=== PATIENT | male | born 1950 | race Caucasian/White ===

== ENCOUNTER 2018-03-13 04:36 | Emergency (ER) | payer OTHER ==
[2018-03-13] MEDS ORDERED: Ondansetron 4 MG/2 ML SDV IVPUSH ONE (05:02)
--- NOTE | 2018-03-13 05:05 | EDM.PDOC ---
ED HPI GENERAL MEDICAL PROBLEM - General Chief Complaint: Gastrointestinal Problem Stated Complaint: VOMITING Time Seen by Provider: 03/13/18 05:02 - History of Present Illness INITIAL COMMENTS - FREE TEXT/NARRATIVE: HISTORY AND PHYSICAL: History of present illness: Patient is a 68-year-old white male history of non-insulin dependent diabetes and hypertension who presents with concern of nausea and vomiting over last 24- 48 hours he's had some vague abdominal pain it's more left-sided is no fever chills chest pain shortness breath or other concern. Blood sugar on arrival was 338 Review of systems: As per history of present illness and below otherwise all systems reviewed and negative. Past medical history: As per history of present illness and as reviewed below otherwise noncontributory. Surgical history: As per history of present illness and as reviewed below otherwise noncontributory. Social history: No reported history of drug or alcohol abuse. Family history: As per history of present illness and as reviewed below otherwise noncontributory. Physical exam: HEENT: Atraumatic, normocephalic, pupils reactive, negative for conjunctival pallor or scleral icterus, mucous membranes dry, throat clear, neck supple, nontender, trachea midline. Lungs: Clear to auscultation, breath sounds equal bilaterally, chest nontender. Heart: S1S2, regular, negative for clicks, rubs, or JVD. Abdomen: Soft, nondistended, no localized tenderness Negative for masses or hepatosplenomegaly. Negative for costovertebral tenderness. Pelvis: Stable nontender. Genitourinary: Deferred. Rectal: Deferred. Extremities: Atraumatic, negative for cords or calf pain. Neurovascular unremarkable. Neuro: Awake, alert, oriented. Cranial nerves II through XII unremarkable. Cerebellum unremarkable. Motor and sensory unremarkable throughout. Exam nonfocal. Diagnostics: CBC CMP troponin lipase UA urine drug screen chest x-ray EKG CT abdomen and pelvis Therapeutics: Normal saline 1 L bolus Zofran 4 mg IV Impression: #1 vomiting with dehydration #2 abdominal pain #3 [id number] diabetes #4 history of hypertension Definitive disposition and diagnosis as appropriate pending reevaluation and review of above. abdomen Pain Score (Numeric/FACES): 7 - Related Data Allergies Allergy/AdvReac Type Severity Reaction Status Date / Time No Known Allergies Allergy Verified 03/13/18 04:52 Home Meds: Home Meds Aspirin 81 mg PO DAILY 03/13/18 [History] Lisinopril 40 mg PO DAILY 03/13/18 [History] Multivit-Min/FA/Lycopene/Lut [Centrum Silver Tablet] 1 each PO DAILY 03/13/18 [ History] glipiZIDE [Glucotrol] 5 mg PO DAILY 03/13/18 [History] metFORMIN [Glucophage] 850 mg PO BIDMEALS 03/13/18 [History] Past Medical History Cardiovascular History: Reports: Hypertension Endocrine/Metabolic History: Reports: Diabetes, Type II - Infectious Disease History Infectious Disease History: Reports: Chicken Pox, Measles Social & Family History - Tobacco Use Smoking Status *Q: Never Smoker - Caffeine Use Caffeine Use: Reports: None - Recreational Drug Use Recreational Drug Use: No ED ROS GENERAL - Review of Systems Review Of Systems: ROS reveals no pertinent complaints other than HPI. ED EXAM, GENERAL - Physical Exam Exam: See Below (See dictation) Course - Vital Signs Last Recorded V/S: Last Vital Signs Temp 36.1 C 03/13/18 04:49 Pulse 88 03/13/18 05:46 Resp 18 03/13/18 05:46 BP 168/102 H 03/13/18 05:46 Pulse Ox 100 03/13/18 05:46 - Orders/Labs/Meds Orders: Active Orders 24 hr Category Date Time Status EKG 12 Lead [EKG Documentation Completion] [RC] STAT Care 03/13/18 05:01 Active Abdomen Pelvis wo Cont [CT] Stat Exams 03/13/18 05:06 Taken Chest 1V Frontal [CR] Stat Exams 03/13/18 05:01 Taken DRUG SCREEN, URINE [URCHEM] Stat Lab 03/13/18 05:01 Ordered UA W/MICROSCOPIC [URIN] Stat Lab 03/13/18 05:01 Ordered Labs: Laboratory Tests 03/13/18 03/13/18 03/13/18 Range/Units 04:52 04:55 04:55 WBC 7.56 (4.0-11.0) K/uL RBC 5.48 (4.50-5.90) M/uL Hgb 16.4 (13.0-17.0) g/dL Hct 44.1 (38.0-50.0) % MCV 80.5 (80.0-98.0) fL MCH 29.9 (27.0-32.0) pg MCHC 37.2 H (31.0-37.0) g/dL RDW Std Deviation 37.0 (28.0-62.0) fl RDW Coeff of Mike 13 (11.0-15.0) % Plt Count 169 (150-400) K/uL MPV 10.50 (7.40-12.00) fL Neut % (Auto) 75.9 (48.0-80.0) % Lymph % (Auto) 17.5 (16.0-40.0) % [place] % (Auto) 6.1 (0.0-15.0) % Eos % (Auto) 0.1 (0.0-7.0) % Baso % (Auto) 0.4 (0.0-1.5) % Neut # (Auto) 5.7 (1.4-5.7) K/uL Lymph # (Auto) 1.3 (0.6-2.4) K/uL [place] # (Auto) 0.5 (0.0-0.8) K/uL Eos # (Auto) 0.0 (0.0-0.7) K/uL Baso # (Auto) 0.0 (0.0-0.1) K/uL Nucleated RBC % 0.0 /100WBC Nucleated RBCs # 0 K/uL ABG pH (7.35-7.45) ABG pCO2 (35-45) mmHG ABG pO2 (75-100) mmHG ABG HCO3 (22-26) mEq/L ABG Total CO2 ABG Base Excess (-2.0-2.0) Sodium 136 (136-148) mmol/L Potassium 3.4 L (3.5-5.1) mmol/L Chloride 100 (98-107) mmol/L Carbon Dioxide 24.2 (21.0-32.0) mmol/L BUN 11 (7.0-18.0) mg/dL Creatinine 1.1 (0.8-1.3) mg/dL Est Cr Clr Drug Dosing 66.06 mL/min Estimated GFR (MDRD) > 60.0 ml/min Glucose 384 H (74-106) mg/dL POC Glucose 338 H (60-110) mg/dL Calcium 9.3 (8.5-10.1) mg/dL Total Bilirubin 1.5 H (0.2-1.0) mg/dL AST 14 L (15-37) IU/L ALT 24 (14-63) IU/L Alkaline Phosphatase 60 (46-116) U/L Troponin I < 0.050 (0.000-0.056) ng/mL Total Protein 8.1 (6.4-8.2) g/dL Albumin 4.1 (3.4-5.0) g/dL Globulin 4.0 H (2.0-3.5) g/dL Albumin/Globulin Ratio 1.0 L (1.3-2.8) Lipase 140 (73-393) U/L 03/13/18 Range/Units 05:35 WBC (4.0-11.0) K/uL RBC (4.50-5.90) M/uL Hgb (13.0-17.0) g/dL Hct (38.0-50.0) % MCV (80.0-98.0) fL MCH (27.0-32.0) pg MCHC (31.0-37.0) g/dL RDW Std Deviation (28.0-62.0) fl RDW Coeff of Mike (11.0-15.0) % Plt Count (150-400) K/uL MPV (7.40-12.00) fL Neut % (Auto) (48.0-80.0) % Lymph % (Auto) (16.0-40.0) % [place] % (Auto) (0.0-15.0) % Eos % (Auto) (0.0-7.0) % Baso % (Auto) (0.0-1.5) % Neut # (Auto) (1.4-5.7) K/uL Lymph # (Auto) (0.6-2.4) K/uL [place] # (Auto) (0.0-0.8) K/uL Eos # (Auto) (0.0-0.7) K/uL Baso # (Auto) (0.0-0.1) K/uL Nucleated RBC % /100WBC Nucleated RBCs # K/uL ABG pH 7.547 H (7.35-7.45) ABG pCO2 22 L (35-45) mmHG ABG pO2 107 H (75-100) mmHG ABG HCO3 19 L (22-26) mEq/L ABG Total CO2 16.1 ABG Base Excess -1.1 (-2.0-2.0) Sodium (136-148) mmol/L Potassium (3.5-5.1) mmol/L Chloride (98-107) mmol/L Carbon Dioxide (21.0-32.0) mmol/L BUN (7.0-18.0) mg/dL Creatinine (0.8-1.3) mg/dL Est Cr Clr Drug Dosing mL/min Estimated GFR (MDRD) ml/min Glucose (74-106) mg/dL POC Glucose (60-110) mg/dL Calcium (8.5-10.1) mg/dL Total Bilirubin (0.2-1.0) mg/dL AST (15-37) IU/L ALT (14-63) IU/L Alkaline Phosphatase (46-116) U/L Troponin I (0.000-0.056) ng/mL Total Protein (6.4-8.2) g/dL Albumin (3.4-5.0) g/dL Globulin (2.0-3.5) g/dL Albumin/Globulin Ratio (1.3-2.8) Lipase (73-393) U/L Meds: Medications Discontinued Medications Generic Name Dose Route Start Last Admin Trade Name Freq PRN Reason Stop Dose Admin Sodium Chloride 1,000 mls @ 999 mls/hr 03/13/18 05:15 03/13/18 05:16 Normal Saline IV 03/13/18 06:15 999 mls/hr .Bolus ONE Administration Ondansetron HCl 4 mg 03/13/18 05:02 03/13/18 05:16 Zofran IVPUSH 03/13/18 05:03 4 mg ONETIME ONE Administration Departure - Departure Time of Disposition: 06:36 Disposition: Home, Self-Care 01 Condition: Good Clinical Impression: Hernia, Vomiting, Abdominal pain - Discharge Information *PRESCRIPTION DRUG MONITORING PROGRAM REVIEWED*: Not Applicable *COPY OF PRESCRIPTION DRUG MONITORING REPORT IN PATIENT ANTOLIN: Not Applicable Referrals: PCP,None [Primary Care Provider] - Forms: ED Department Discharge Additional Instructions: The following information is given to patients seen in the emergency department who are being discharged to home. This information is to outline your options for follow-up care. We provide all patients seen in our emergency department with a follow-up referral. The need for follow-up, as well as the timing and circumstances, are variable depending upon the specifics of your emergency department visit. If you don't have a primary care physician on staff, we will provide you with a referral. We always advise you to contact your personal physician following an emergency department visit to inform them of the circumstance of the visit and for follow-up with them and/or the need for any referrals to a consulting specialist. The emergency department will also refer you to a specialist when appropriate. This referral assures that you have the opportunity for followup care with a specialist. All of these measure are taken in an effort to provide you with optimal care, which includes your followup. Under all circumstances we always encourage you to contact your private physician who remains a resource for coordinating your care. When calling for followup care, please make the office aware that this follow-up is from your recent emergency room visit. If for any reason you are refused follow-up, please contact the [facility] emergency department at and asked to speak to the emergency department charge nurse. [facility] [address] [place] [id number] [facility] - General Surgery Professional Building [address] [place] [address], [address] [place] [address] Zofran as prescribed push fluids follow-up primary care in Gen. surgery clinic call to schedule routine appointment and return as needed as discussed - My Orders Last 24 Hours: My Active Orders 03/13/18 05:01 EKG 12 Lead [EKG Documentation Completion] [RC] STAT Chest 1V Frontal [CR] Stat DRUG SCREEN, URINE [URCHEM] Stat UA W/MICROSCOPIC [URIN] Stat 03/13/18 05:06 Abdomen Pelvis wo Cont [CT] Stat - Assessment/Plan Last 24 Hours: My Active Orders 03/13/18 05:01 EKG 12 Lead [EKG Documentation Completion] [RC] STAT Chest 1V Frontal [CR] Stat DRUG SCREEN, URINE [URCHEM] Stat UA W/MICROSCOPIC [URIN] Stat 03/13/18 05:06 Abdomen Pelvis wo Cont [CT] Stat
[2018-03-13] MEDS ORDERED: Sodium Chloride 0.9% 500 ML IV SCH (05:15)
[2018-03-13] MEDS ORDERED: Sodium Chloride 0.9% 1,000 ML IV ONE (05:15)
[2018-03-13 05:22] LABS: CHLORIDE,CL 100 mmol/L (98-107); SODIUM,NA 136 mmol/L (136-148)
--- NOTE | 2018-03-13 14:56 | CR ---
EXAM DATE: 03/13/18 PATIENT'S AGE: 68 Patient: CHARMAINE DARLING Facility: [place], [place] Site . Site : 1950 Study: XRay Chest [id number]/20/2018 6:06:49 AM Ordering Physician: Navya Leyva Final Report: INDICATION: Pain. FINDINGS: Two PA chest x-rays show a normal cardiac silhouette. Atherosclerotic aorta. The lungs show no focal pulmonary opacities. Sharp pleural margins. No pneumothorax. IMPRESSION: No evidence of acute pulmonary abnormalities. Dictated by Joao Marquez MD @ 03/13/2018 6:13:53 AM Dictated by: Joao Marquez MD @ 03/13/2018 06:14:08 (Electronic Signature) Report Signed by Proxy. JOÃO
--- NOTE | 2018-03-13 15:07 | CT ---
EXAM DATE: 03/13/18 PATIENT'S AGE: 68 Patient: CHARMAINE DARLING Facility: [place], [place] Site . Site : 1950 Study: CT Abdomen/Pelvis [id number]/20/2018 6:07:09 AM Ordering Physician: Navya Leyva Final Report: INDICATION: Abdominal pain. TECHNIQUE: Noncontrast CT scan of the abdomen and pelvis. FINDINGS: The lung bases are unremarkable. No focal abnormalities identified in the visualized portions of the liver, spleen, pancreas, adrenal glands, and kidneys. No hydronephrosis. No uroliths. Mild colonic diverticulosis with no evidence of diverticulitis. The remainder of the GI tract is incompletely distended but shows no gross abnormalities. The stomach and GE junction are not well assessed. Normal appendix. Left inguinal hernia which contains a loop of sigmoid colon with no evidence of strangulation or incarceration. Atherosclerotic vascular calcifications. No retroperitoneal, pelvic sidewall, or mesenteric adenopathy. Degenerative changes of the spine. IMPRESSION: 1. No acute abnormalities of the abdomen or pelvis identified. 2. Left inguinal hernia which contains a loop of sigmoid colon with no evidence of strangulation or incarceration. Dictated by Joao Marquez MD @ 03/13/2018 6:20:27 AM Dictated by: Joao Marquez MD @ 03/13/2018 06:21:00 (Electronic Signature) Report Signed by Proxy. M[facility] IMOGEN[facility]ASSETT HOSPITALDarrell
== END 2018-03-13 06:45 | disposition home or self-care (01) ==
LOC: MW.ED 04:36
DX: K46.9 Unspecified abdominal hernia without obstruction or gangrene (principal); E86.0 Dehydration; R11.2 Nausea with vomiting, unspecified; I10 Essential (primary) hypertension; E11.9 Type 2 diabetes mellitus without complications; Z79.82 Long term (current) use of aspirin; Z79.899 Other long term (current) drug therapy
CPT/HCPCS: 36415; 36600; 71045; 74176; 80053; 80305; 81001; 82803; 82962; 83690; 84484; 85025; 93005; 96361; 96374; 99285; J2405; J7040